=== PATIENT | male | born 1965 | race Asian ===

== ENCOUNTER 2020-05-09 08:00 | Outpatient (CLI) | payer OTHER ==
[2020-05-09 13:10] LABS: BASOPHILS % (AUTO) 0.2 %; EOSINOPHILS # (AUTO) 0.1 10^3/uL (0.0-0.7); EOSINOPHILS % (AUTO) 1.2 %; HGB - HEMOGLOBIN 14.5 g/dL (14.0-18.0); LYMPHOCYTES # (AUTO) 2.4 10^3/uL (1.5-3.5); LYMPHOCYTES % (AUTO) 40.3 %; MEAN CORPUSCULAR HEMOGLOBIN 29.8 pg (27.0-31.0); MEAN CORPUSCULAR VOLUME 90.5 fL (80.0-94.0); MEAN PLATELET VOLUME 8.7 fL (7.4-11.4); MONOCYTES # (AUTO) 0.4 10^3/uL (0.0-1.0); MONOCYTES % (AUTO) 6.1 %; NEUTROPHILS # (AUTO) 3.1 10^3/uL (1.5-6.6); PLT - PLATELET COUNT 250 10^3/uL (130-450); RED BLOOD COUNT 4.86 10^6/uL (4.70-6.10); RED CELL DISTRIBUTION WIDTH 12.9 % (12.0-15.0); WHITE BLOOD COUNT 5.9 x10^3/uL (4.8-10.8)
[2020-05-09 13:27] LABS: ALBUMIN 4.2 g/dL (3.2-5.5); ALBUMIN/GLOBULIN RATIO 1.2 (1.0-2.2); ALKALINE PHOSPHATASE 52 IU/L (42-121); ALT ALANINE AMINOTRANSFERASE 35 IU/L (10-60); AST ASPARTATE AMINOTRANSFERASE 27 IU/L (10-42); BILIRUBIN,TOTAL 1.2 mg/dL (0.2-1.0); BUN - BLOOD UREA NITROGEN 20 mg/dL (6-20); CALCIUM 8.9 mg/dL (8.5-10.3); CARBON DIOXIDE - CO2 26 mmol/L (21-32); CHLORIDE 104 mmol/L (101-111); CHOL/HDL RATIO 4.8 (<5.0); CHOLESTEROL 250 mg/dL; GLUCOSE 106 mg/dL (70-100); HDL CHOLESTEROL 52 mg/dL; LDL CHOLESTEROL,CALCULATED 160 mg/dL; LDL/HDL RATIO 3.1 (<3.6); SODIUM 138 mmol/L (135-145); TOTAL PROTEIN 7.8 g/dL (6.7-8.2); VLDL CHOLESTEROL 38 mg/dL
[2020-05-09 13:51] LABS: HEMOGLOBIN A1c% 5.5 % (4.27-6.07)
== END 2020-05-09 23:59 | disposition home or self-care (01) ==
LOC: LAB.WCP 08:00
PROVIDERS: ATTEND Physician Assistant
DX: Z00.00 Encounter for general adult medical examination without abnormal findings (principal)
CPT/HCPCS: 36415; 80053; 80061; 83036; 83721; 84153; 84443; 85025

== ENCOUNTER 2023-04-23 08:21 | Outpatient (CLI) | payer SELFPAY | END 2023-04-23 08:22 | disposition short-term general hospital (02) | LOC: EMS 08:21 | DX: R07.89 Other chest pain (principal); R94.31 Abnormal electrocardiogram [ECG] [EKG] | CPT/HCPCS: A0425; A0427 ==

== ENCOUNTER 2023-09-06 09:36 | Outpatient (CLI) | payer BC ==
[2023-09-06 18:55] LABS: EOSINOPHILS % (AUTO) 1.1 %; HCT - HEMATOCRIT 47.3 % (42.0-52.0); HGB - HEMOGLOBIN 14.8 g/dL (14.0-18.0); LYMPHOCYTES # (AUTO) 2.1 10^3/uL (1.5-3.5); LYMPHOCYTES % (AUTO) 54.4 %; MEAN CORPUSCULAR HEMOGLOBIN 27.4 pg (27.0-31.0); MEAN CORPUSCULAR HGB CONC 31.3 g/dL (32.0-36.0); MEAN CORPUSCULAR VOLUME 87.4 fL (80.0-94.0); MEAN PLATELET VOLUME 10.1 fL (7.4-11.4); MONOCYTES # (AUTO) 0.3 10^3/uL (0.0-1.0); MONOCYTES % (AUTO) 8.8 %; NEUTROPHILS # (AUTO) 1.3 10^3/uL (1.5-6.6); NEUTROPHILS % (AUTO) 35.4 %; PLT - PLATELET COUNT 134 10^3/uL (130-450); RED BLOOD COUNT 5.41 10^6/uL (4.70-6.10); RED CELL DISTRIBUTION WIDTH 13.6 % (12.0-15.0); WHITE BLOOD COUNT 3.8 x10^3/uL (4.8-10.8)
[2023-09-06 19:15] LABS: ALBUMIN 3.7 g/dL (3.2-5.5); ALKALINE PHOSPHATASE 117 IU/L (42-121); ALT ALANINE AMINOTRANSFERASE 43 IU/L (10-60); AST ASPARTATE AMINOTRANSFERASE 36 IU/L (10-42); BILIRUBIN,TOTAL 1.4 mg/dL (0.2-1.0); BUN - BLOOD UREA NITROGEN 17 mg/dL (6-20); CALCIUM 10.3 mg/dL (8.5-10.3); CARBON DIOXIDE - CO2 28 mmol/L (21-32); CHLORIDE 103 mmol/L (101-111); CHOL/HDL RATIO 2.8 (<5.0); CHOLESTEROL 135 mg/dL; CREATININE 0.7 mg/dL (0.6-1.3); GFR - MDRD 115 (>89); GLUCOSE 90 mg/dL (74-104); HDL CHOLESTEROL 48 mg/dL; LDL CHOLESTEROL,CALCULATED 72 mg/dL; LDL/HDL RATIO 1.5 (<3.6); SODIUM 138 mmol/L (135-145); TOTAL PROTEIN 7.5 g/dL (6.4-8.9); TRIGLYCERIDES 76 mg/dL (48-352); VLDL CHOLESTEROL 15 mg/dL
== END 2023-09-06 09:37 | disposition home or self-care (01) ==
LOC: LAB.N 09:36
PROVIDERS: ATTEND Nurse Practitioner
DX: I10 Essential (primary) hypertension (principal); E78.5 Hyperlipidemia, unspecified; R97.20 Elevated prostate specific antigen [PSA]
CPT/HCPCS: 36415; 80053; 80061; 83721; 84153; 85025

== ENCOUNTER 2024-02-16 07:30 | Outpatient (CLI) | payer BC ==
[2024-02-16 18:26] LABS: H. PYLORIS ANTIGEN STL NEGATIVE (Negative)
[2024-02-17 12:34] LABS: EOSINOPHILS % (AUTO) 0.6 %; HGB - HEMOGLOBIN 13.7 g/dL (14.0-18.0); LYMPHOCYTES # (AUTO) 1.5 10^3/uL (1.5-3.5); LYMPHOCYTES % (AUTO) 29.6 %; MEAN CORPUSCULAR HEMOGLOBIN 28.1 pg (27.0-31.0); MEAN CORPUSCULAR HGB CONC 31.9 g/dL (32.0-36.0); MEAN CORPUSCULAR VOLUME 88.3 fL (80.0-94.0); MEAN PLATELET VOLUME 9.6 fL (7.4-11.4); MONOCYTES # (AUTO) 0.4 10^3/uL (0.0-1.0); MONOCYTES % (AUTO) 8.6 %; NEUTROPHILS # (AUTO) 3.1 10^3/uL (1.5-6.6); PLT - PLATELET COUNT 152 10^3/uL (130-450); RED BLOOD COUNT 4.87 10^6/uL (4.70-6.10); RED CELL DISTRIBUTION WIDTH 12.2 % (12.0-15.0); WHITE BLOOD COUNT 5.1 x10^3/uL (4.8-10.8)
[2024-02-17 12:57] LABS: ESTIMATED AVERAGE GLUCOSE 117 mg/dL (70-100); HEMOGLOBIN A1c% 5.7 % (4.27-6.07)
[2024-02-17 12:59] LABS: ALKALINE PHOSPHATASE 141 IU/L (42-121); ALT ALANINE AMINOTRANSFERASE 41 IU/L (10-60); AST ASPARTATE AMINOTRANSFERASE 30 IU/L (10-42); BILIRUBIN,TOTAL 1.5 mg/dL (0.2-1.0); BUN - BLOOD UREA NITROGEN 19 mg/dL (6-20); CALCIUM 10.1 mg/dL (8.5-10.3); CARBON DIOXIDE - CO2 26 mmol/L (21-32); CHLORIDE 106 mmol/L (101-111); CHOL/HDL RATIO 2.2 (<5.0); CHOLESTEROL 121 mg/dL; CREATININE 0.7 mg/dL (0.6-1.3); GFR - MDRD 115 (>89); GLUCOSE 112 mg/dL (74-104); HDL CHOLESTEROL 54 mg/dL; LDL CHOLESTEROL,CALCULATED 51 mg/dL; LDL/HDL RATIO 0.9 (<3.6); POTASSIUM 4.1 mmol/L (3.5-4.5); SODIUM 137 mmol/L (135-145); TOTAL PROTEIN 7.9 g/dL (6.4-8.9); TRIGLYCERIDES 81 mg/dL; VLDL CHOLESTEROL 16 mg/dL
[2024-02-17 13:06] LABS: THYROID STIMULATING HORMONE < 0.01 uIU/mL (0.34-5.60)
== END 2024-02-16 07:31 | disposition home or self-care (01) ==
LOC: LAB.R 07:30
PROVIDERS: ATTEND Nurse Practitioner
DX: K21.9 Gastro-esophageal reflux disease without esophagitis (principal); I10 Essential (primary) hypertension; E78.5 Hyperlipidemia, unspecified; R73.03 Prediabetes; I48.92 Unspecified atrial flutter
CPT/HCPCS: 80053; 80061; 83036; 83721; 84439; 84443; 85025; 87338

== ENCOUNTER 2024-02-16 08:53 | Outpatient (CLI) | payer BC | END 2024-02-16 08:54 | disposition EMS.NT | LOC: EMS 08:53 | DX: R10.13 Epigastric pain (principal); R07.9 Chest pain, unspecified; I48.91 Unspecified atrial fibrillation ==

== ENCOUNTER 2024-04-19 23:59 | Outpatient (CLI) | payer BC | END 2024-04-20 | disposition critical access hospital (66) | LOC: EMS 23:59 | DX: R40.20 Unspecified coma (principal) | CPT/HCPCS: A0425; A0427 ==

== ENCOUNTER 2024-04-20 00:14 | Emergency (ER) | payer BC ==
[2024-04-20] MEDS ORDERED: LORazepam 2 MG/ML VIAL ONE (00:19)
--- NOTE | 2024-04-20 00:29 | ED Physician Documentation ---
PD HPI DYSPNEA - Stated complaint Stated Complaint: INTUBATED - History obtained from History obtained from: Family (son, with whom the patient has been staying since surgery, so has close contact information of the patient.), EMS (EMS noted the patient to have marked work of breathing with decreased respiratory rate and low oximetry in the 73% range on their arrival. He did not respond to facemask oxygen and was intubated in the field.) - History of Present Illness Timing - onset: How many days ago (The patient's son notes there has been progressive edema in both legs over the last several days along with some general fatigue and some dyspnea noted. This culminated this evening with kimber Worsening of breathing, altered mentation and less responsiveness.) Timing - onset during: Light activity Timing - details: Gradual onset (with marked worsening this evening.) Inciting event(s): No: URI (no URI symptoms per family) Associated symptoms: Bilateral edema. No: Fever, Cough Recently seen: Surgery (The patient had three-vessel bypass at [facility] 2 weeks ago according to the family. He was discharged on oxygen at I believe 4 L nasal cannula. On several medications including diuretic, beta-uli, apixaban as most pertinent. Family states he had been doing okay until past few days.) Review of Systems Unable to obtain: Intubated, Other (info from family) Constitutional: denies: Fever Cardiac: reports: Chest pain / pressure (musculoskeletal type from the surgery), Pedal edema Respiratory: reports: Dyspnea. denies: Cough GI: denies: Vomiting, Diarrhea PD PAST MEDICAL HISTORY - Past Medical History Cardiovascular: Coronary artery disease Respiratory: None Endocrine/Autoimmune: None GI: None : None HEENT: None Psych: None Musculoskeletal: None - Present Medications Home Medications: Ambulatory Orders Medication Instructions Recorded Confirmed No Known Home Medications 04/16/13 04/16/13 - Allergies Allergies/Adverse Reactions: Allergies Allergy/AdvReac Type Severity Reaction Status Date / Time iodine Allergy Severe Hives Verified 04/20/24 00:28 PD ED PE NORMAL - Vitals Vital signs reviewed: Yes - General General: Well developed/nourished, Other (intubated with some movements and seems distressed by the tube, improved with sedation.) - Neck Neck: Other (JVD present at 45 degrees. ) - Cardiac Cardiac: RRR, No murmur - Respiratory Respiratory: Other (intubated). No: Clear bilaterally (coarse/wet sounds bilaterally with diminished at bases right more than left. ) - Abdomen Abdomen: Soft, Non distended Results - Vitals Vitals: Vital Signs - 24 hr 04/20/24 04/20/24 04/20/24 00:28 00:40 00:41 Temperature 36.5 C Heart Rate 73 61 62 Respiratory 22 19 Rate Blood Pressure 124/56 L 104/41 L O2 Saturation 98 100 04/20/24 04/20/24 04/20/24 00:48 01:03 01:15 Temperature 37.4 C Heart Rate 56 L 45 L 76 Respiratory 20 22 18 Rate Blood Pressure 83/53 L 80/45 L 128/57 L O2 Saturation 100 100 100 04/20/24 04/20/24 04/20/24 01:30 01:34 01:45 Temperature 37.3 C 37.2 C Heart Rate 81 84 80 Respiratory 20 20 Rate Blood Pressure 136/55 H 124/53 L O2 Saturation 100 100 04/20/24 04/20/24 04/20/24 02:00 02:15 02:30 Temperature 37 C Heart Rate 80 76 81 Respiratory 20 20 20 Rate Blood Pressure 128/62 126/61 125/56 L O2 Saturation 100 100 100 04/20/24 04/20/24 04/20/24 02:45 03:00 03:15 Temperature 36.9 C 36.9 C 36.9 C Heart Rate 82 83 93 Respiratory 20 20 20 Rate Blood Pressure 121/58 L 121/57 L 121/57 L O2 Saturation 100 100 100 04/20/24 04/20/24 03:30 04:00 Temperature 37 C 36.9 C Heart Rate 88 82 Respiratory 24 20 Rate Blood Pressure 104/54 L 110/61 O2 Saturation 100 100 Oxygen O2 Source Mechanical ventilator - EKG (time done) 0024 EKG releavant findings:: EKG personally interpreted by author of this note. Relevant findings are: Rate: Rate (enter#) (61) Rhythm: NSR [place]: Normal Intervals: Normal VT QRS: Normal Ischemia: Normal ST segments. No: ST elevation c/w ischemia, ST depression - Labs Labs: Laboratory Tests 04/20/24 04/20/24 04/20/24 00:20 00:20 00:20 WBC 13.8 H RBC 2.71 L Hgb 7.7 L Hct 26.8 L MCV 98.9 H MCH 28.4 MCHC 28.7 L RDW 17.5 H Plt Count 533 H MPV 9.2 Neut # (Auto) 12.1 H Lymph # (Auto) 0.9 L [place] # (Auto) 0.8 Eos # (Auto) 0.0 Baso # (Auto) 0.0 Absolute Nucleated RBC 0.00 Nucleated RBC % 0.0 PT INR APTT Bld Gas Analysis Time Sample Site ABG pH ABG pCO2 ABG pO2 ABG HCO3 ABG Total CO2 ABG O2 Saturation ABG Base Excess Juan Test Respiration Rate O2 Delivery Device Vent Mode FiO2 Tidal Volume PEEP Sodium Potassium Chloride Carbon Dioxide Anion Gap BUN Creatinine Estimated GFR (MDRD) Glucose Calcium Magnesium 1.8 Total Bilirubin AST ALT Alkaline Phosphatase Troponin I High Sens 60.6 H* B-Natriuretic Peptide 224 H Total Protein Albumin Globulin Albumin/Globulin Ratio Lipase Nasal Adenovirus (PCR) Nasal B. parapertussis DNA (PCR) Nasal Coronavir 229E PCR Nasal Coronavir HKU1 PCR Nasal Coronavir NL63 PCR Nasal Coronavir OC43 PCR Nasal Enterovir/Rhinovir PCR Nasal Influenza B PCR Nasal Influenza A PCR Nasal Parainfluen 1 PCR Nasal Parainfluen 2 PCR Nasal Parainfluen 3 PCR Nasal Parainfluen 4 PCR Nasal RSV (PCR) Nasal B.pertussis DNA PCR Nasal C.pneumoniae (PCR) Leo Human Metapneumo PCR Nasal M.pneumoniae (PCR) Nasal SARS-CoV-2 (PCR) 04/20/24 04/20/24 04/20/24 00:20 00:20 00:37 WBC RBC Hgb Hct MCV MCH MCHC RDW Plt Count MPV Neut # (Auto) Lymph # (Auto) [place] # (Auto) Eos # (Auto) Baso # (Auto) Absolute Nucleated RBC Nucleated RBC % PT 21.0 H INR 2.0 H APTT 28.3 Bld Gas Analysis Time Sample Site ABG pH ABG pCO2 ABG pO2 ABG HCO3 ABG Total CO2 ABG O2 Saturation ABG Base Excess Juan Test Respiration Rate O2 Delivery Device Vent Mode FiO2 Tidal Volume PEEP Sodium 124 L Potassium 5.8 H Chloride 95 L Carbon Dioxide 20 L Anion Gap 9.0 BUN 40 H Creatinine 1.5 H Estimated GFR (MDRD) 48 L Glucose 140 H Calcium 8.3 L Magnesium Total Bilirubin 4.5 H AST 122 H ALT 165 H Alkaline Phosphatase 265 H Troponin I High Sens B-Natriuretic Peptide Total Protein 6.8 Albumin 2.7 L Globulin 4.1 Albumin/Globulin Ratio 0.7 L Lipase 107 H Nasal Adenovirus (PCR) NOT DETECTED Nasal B. parapertussis DNA (PCR) NOT DETECTED Nasal Coronavir 229E PCR NOT DETECTED Nasal Coronavir HKU1 PCR NOT DETECTED Nasal Coronavir NL63 PCR NOT DETECTED Nasal Coronavir OC43 PCR NOT DETECTED Nasal Enterovir/Rhinovir PCR NOT DETECTED Nasal Influenza B PCR NOT DETECTED Nasal Influenza A PCR NOT DETECTED Nasal Parainfluen 1 PCR NOT DETECTED Nasal Parainfluen 2 PCR NOT DETECTED Nasal Parainfluen 3 PCR NOT DETECTED Nasal Parainfluen 4 PCR NOT DETECTED Nasal RSV (PCR) NOT DETECTED Nasal B.pertussis DNA PCR NOT DETECTED Nasal C.pneumoniae (PCR) NOT DETECTED Leo Human Metapneumo PCR NOT DETECTED Nasal M.pneumoniae (PCR) NOT DETECTED Nasal SARS-CoV-2 (PCR) NOT DETECTED 04/20/24 01:15 WBC RBC Hgb Hct MCV MCH MCHC RDW Plt Count MPV Neut # (Auto) Lymph # (Auto) [place] # (Auto) Eos # (Auto) Baso # (Auto) Absolute Nucleated RBC Nucleated RBC % PT INR APTT Bld Gas Analysis Time 0121 Sample Site LEFT BRACHIAL ABG pH 7.20 L* ABG pCO2 56 H ABG pO2 49 L ABG HCO3 21.4 L ABG Total CO2 23.1 ABG O2 Saturation 76 L* ABG Base Excess -6.3 L Juan Test NOT APPLICABLE Respiration Rate 18 O2 Delivery Device VENTILATOR Vent Mode SIMV FiO2 70.00 Tidal Volume 450 PEEP 5 Sodium Potassium Chloride Carbon Dioxide Anion Gap BUN Creatinine Estimated GFR (MDRD) Glucose Calcium Magnesium Total Bilirubin AST ALT Alkaline Phosphatase Troponin I High Sens B-Natriuretic Peptide Total Protein Albumin Globulin Albumin/Globulin Ratio Lipase Nasal Adenovirus (PCR) Nasal B. parapertussis DNA (PCR) Nasal Coronavir 229E PCR Nasal Coronavir HKU1 PCR Nasal Coronavir NL63 PCR Nasal Coronavir OC43 PCR Nasal Enterovir/Rhinovir PCR Nasal Influenza B PCR Nasal Influenza A PCR Nasal Parainfluen 1 PCR Nasal Parainfluen 2 PCR Nasal Parainfluen 3 PCR Nasal Parainfluen 4 PCR Nasal RSV (PCR) Nasal B.pertussis DNA PCR Nasal C.pneumoniae (PCR) Leo Human Metapneumo PCR Nasal M.pneumoniae (PCR) Nasal SARS-CoV-2 (PCR) - Rads (name of study) chest xray Relevant Findings:: Prelim report reviewed, EMP independent interpretation of test (ETT in position. effusions both sides right more than left. General vas cular congestion c/w pulmonary edema. ) chest CT angio Relevant Findings:: Prelim report reviewed (no large central PEs. Small vessels with some motion artifact. Effusions bilaterally. edema present. ), EMP independent interpretation of test PD Medical Decision Making - ED course Complexity details: reviewed results (The patient's chest x-ray showed notable effusions on both sides more on the right. Vascular edema consistent with CHF. No pneumothorax. I did do a limited bedside ultrasound and showed the IVC to be dilated but had some compressibility. heart without significant effusion nor tamponade.), considered differential (Recent three-vessel bypass just in the last 2 weeks with several days of increasing edema and some dyspnea now culminating with significant respiratory distress and failure this evening with significant hypoxia and altered mentation.), d/w family, d/w behavioral health consultant (Dr. Grover, ways operator at [facility], who concurs with current treatment and accepts transfer of patient.) ED course: The patient arrives intubated due to respiratory distress, altered mentation, significant hypoxia to 73% as noted by EMS in the field. He was intubated by them. He arrives still sedate from the RSI. He does start to rouse some soon after arrival. He appears anxious which is reasonable. He is given Versed initially to help with sedation and propofol drip will be started. Family is present to help give information. He has been staying with them so they have close contact. They state he has been taking his medication. He had been currently recovering okay. He had had sternal chest pain consistent with the musculoskeletal but did not describe any pressure type feelings to them. They had noticed he had increasing edema in both legs progressively over the last 3 to 4 days. Some general weakness and dyspnea. However this culminated significantly with marked increase in dyspnea this evening and then altered mentation. The patient does have clinical strong suggestion of CHF with now pulmonary edema given JVD, wet lung sounds, the history, and 2+ edema in both legs up to and above the knees. Bedside ultrasound done promptly did not show any pericardial effusion nor signs of tamponade. Effusion noted on both sides. No free fluid in the abdomen. The IVC showed dilation but some compressibility. Presumption of post operative CHF with now pulmonary edema, the main targeted goals were for blood pressure adequacy and diuresis. EMS states their initial blood pressure was in the normal range approximately 130 systolic. And a heart rate approximately 100-1 10. It was a sinus rhythm. Here his blood pressure is mildly hypotensive at 88-100 systolic. Presumption could be from the RSI medications as well as the intubation with decreased preload. However the patient was still needing sedation. I did not want to give much fluid given the scenario of likely CHF and volume overload. He was given a very slight amount of IV fluid en route by EMS. Main focus was for then pressor support. Norepinephrine was started and titrated for blood pressure above 100. Main goal was MAP above 65. Blood pressure did improve with this and he is normotensive over several readings. We then did give Lasix 80 mg IV. NG and Shafer were placed. Soon after arrival the patient had had a chest x-ray as well that confirmed good to position and had already been verified by symmetric lung sounds bilaterally. Basic blood test initially where showing a only minimally elevated BNP in the 200s. Troponin was 60 which is mildly elevated and could be just demand ischemia. The chest x-ray showed good position for the endotracheal tube, pulmonary edema and bilateral effusions. EKG showed normal sinus rhythm without any ectopy. No ST elevations. Review of the blood count and electrolytes and chemistry showed some anemia, elevated creatinine of 1.7 with our previous from September being 1.0. LFTs were elevated with a bilirubin of 3 and general elevation of the other LFTs in the 200 range. Lipase mildly elevated around 200. Potassium was adequate at 5.4. The patient was maintained on a ventilator with initial settings per protocol by respiratory. Initial blood gas showed a pH 7.2 and a pCO2 of 53 and a low pCO2 of 49. We increased his PEEP from 5-8 and his tidal volume as well. This did provide improvement in his end-tidal CO2 on the monitor which had correlated with the blood gas. End-tidal CO2 decreased to 40. O2 sats by oximeter tree are remaining 96-100. Respiratory was able to titrate down his FiO2 to 60%. NG and Shafer had been placed by nursing staff. The Shafer output was dark and small initially but picked up quite briskly after the Lasix and he is put out approximately 800 to 900 mL of clear urine at this time. Given his recent bypass surgery at [facility] with now congestive failure, it seems prudent to reach out to them. We did call the [facility] transfer center and they were able to maneuver bed availability to have an ICU bed. I talked with the ways operator there who is in agreement with her current treatment and accepted transfer. On the patient was transferred over and improving condition. CT of the chest was able to be done and there were no signs of central pulmonary emboli. Note was made of the CHF and effusions. Care was given over to [facility]. Currently he is on propofol for sedation, norepinephrine for pressure support at a rate of 10. Current vitals are stable with normal tensive blood pressure and heart rate under 100, end-tidal CO2 of 40 and oximetry of 100% on current settings. - Critical Care Time(min): 85 Time Includes: Direct patient care, Reassess patient, Document care, Coordinate care, Medical consult, Family consult for [facility] Data interpretation: Labs, Pulse ox, ABG, CXR Procedures excluded from critical care time: EKG Departure - Departure Disposition: 02 Transfer Acute Care Hosp Clinical Impression: Acute respiratory failure, Status post aorto-coronary artery bypass graft, Pulmonary edema, Pleural effusion Condition: Serious Forms: PCP List Discharge Date/Time: 04/20/24 04:21
[2024-04-20 00:43] VITALS: O2SAT 100
[2024-04-20] MEDS: PROPOFOL 1000 MG/100 ML 1,000 MG/100 ML BOTTLE IV SCH (00:45)
--- NOTE | 2024-04-20 00:50 | XRAY Report ---
PROCEDURE: Chest 1V INDICATIONS: dyspnea TECHNIQUE: One view of the chest was acquired. COMPARISON: None. FINDINGS: Surgical changes and devices: Endotracheal tube in the mid trachea. Post median sternotomy.. Lungs and pleura: Small to moderate bilateral pleural effusions. Hazy airspace opacity. No pneumotho rax. Mediastinum: Mediastinal contours appear normal. Heart size is within normal limits. Bones and chest wall: No suspicious bony lesions. Overlying soft tissues appear unremarkable. IMPRESSION: Small to moderate bilateral pleural effusions. Suspect fluid overload/CHF. Endotracheal tube in the mid trachea. Reviewed by: Adrian Flores MD on 04/20/2024 12:48 AM PDT Approved by: Adrian Flores MD on 04/20/2024 12:48 AM PDT Station ID: [id number]
[2024-04-20] MEDS: HYDROmorphone 1 MG/ML CARPUJECT IVP STA (00:52)
[2024-04-20] MEDS: FUROSEMIDE 40 MG/4 ML VIAL IVP STA (00:52)
[2024-04-20] MEDS ORDERED: DEXMEDETOMIDINE 400 MCG/100 ML 100 ML IV PRN (00:52)
[2024-04-20] MEDS: LORazepam 2 MG/ML VIAL IVP STA (00:52)
[2024-04-20 00:55] LABS: MAGNESIUM 1.8 mg/dL (1.7-2.3)
[2024-04-20] MEDS ORDERED: MIDAZOLAM 2 MG/2 ML VIAL ONE (00:56)
[2024-04-20] MEDS: NOREPINEPHRINE/0.9 % NS 8 MG/250 ML BAG IV SCH (01:01)
[2024-04-20] MEDS: SODIUM CHLORIDE 0.9% 1,000 ML IV STA (01:03)
[2024-04-20 01:08] LABS: TROPONIN I HIGH SENSITIVITY 60.6 ng/L (2.3-19.7)
[2024-04-20] MEDS: MIDAZOLAM 10 MG/2 ML VIAL IVP STA (01:12)
[2024-04-20 01:21] LABS: ABG BASE EXCESS -6.3 mmol/L (-2.0-3.0); ABG HCO3 21.4 mmol/L (22.0-26.0); ABG PCO2 56 mmHg (34-45); ABG PO2 49 mmHg (80-100); ABG TCO2 23.1 MMOL/L (21.0-29.0)
[2024-04-20 01:22] LABS: ABG OXYGEN SATURATION 76 % (94-98)
[2024-04-20 01:23] LABS: ABG MODE OF VENTILATION SIMV; ABG RESPIRATORY RATE 18 b/min
[2024-04-20] MEDS ORDERED: iohexoL-300 100 ML VIAL ONE (01:27)
[2024-04-20 01:35] LABS: BASOPHILS % (AUTO) 0.1 %; HCT - HEMATOCRIT 26.8 % (42.0-52.0); HGB - HEMOGLOBIN 7.7 g/dL (14.0-18.0); LYMPHOCYTES # (AUTO) 0.9 10^3/uL (1.5-3.5); LYMPHOCYTES % (AUTO) 6.3 %; MEAN CORPUSCULAR HEMOGLOBIN 28.4 pg (27.0-31.0); MEAN CORPUSCULAR HGB CONC 28.7 g/dL (32.0-36.0); MEAN CORPUSCULAR VOLUME 98.9 fL (80.0-94.0); MEAN PLATELET VOLUME 9.2 fL (7.4-11.4); MONOCYTES # (AUTO) 0.8 10^3/uL (0.0-1.0); MONOCYTES % (AUTO) 5.5 %; NEUTROPHILS # (AUTO) 12.1 10^3/uL (1.5-6.6); NEUTROPHILS % (AUTO) 87.6 %; PLT - PLATELET COUNT 533 10^3/uL (130-450); RED BLOOD COUNT 2.71 10^6/uL (4.70-6.10); RED CELL DISTRIBUTION WIDTH 17.5 % (12.0-15.0); WHITE BLOOD COUNT 13.8 x10^3/uL (4.8-10.8)
[2024-04-20 01:48] LABS: PARTIAL THROMBOPLASTIN TIME 28.3 secs (24.9-33.3)
[2024-04-20 01:52] LABS: ALBUMIN 2.7 g/dL (3.2-5.5); ALBUMIN/GLOBULIN RATIO 0.7 (1.0-2.2); BILIRUBIN,TOTAL 4.5 mg/dL (0.2-1.0); CALCIUM 8.3 mg/dL (8.5-10.3); CREATININE 1.5 mg/dL (0.6-1.3); POTASSIUM 5.8 mmol/L (3.5-4.5); TOTAL PROTEIN 6.8 g/dL (6.4-8.9)
[2024-04-20] MEDS: iohexoL-300 100 ML VIAL IVP ONE (02:56)
[2024-04-20 03:50] LABS: B. PARAPERTUSSIS- RESP PCR PAN NOT DETECTED; B. PERTUSSIS- RESP PCR PANEL NOT DETECTED; C. PNEUMONIAE- RESP PCR PANEL NOT DETECTED; CORONAVIRUS 229E-RESP PCR NOT DETECTED; CORONAVIRUS HKU1-RESP PCR NOT DETECTED; CORONAVIRUS NL63-RESP PCR NOT DETECTED; CORONAVIRUS OC43-RESP PCR NOT DETECTED; HUMAN METAPNEUMOVIRUS NOT DETECTED; INFLUENZA A- RESP PCR PANEL NOT DETECTED; INFLUENZA B - RESP PCR PANEL NOT DETECTED; M. PNEUMONIAE- RESP PCR PANEL NOT DETECTED; PARAINFLUENZA VIRUS 1 NOT DETECTED; PARAINFLUENZA VIRUS 2 NOT DETECTED; PARAINFLUENZA VIRUS 3 NOT DETECTED; PARAINFLUENZA VIRUS 4 NOT DETECTED; RHINOVIRUS/ENTEROVIRUS NOT DETECTED; RSV- RESP PCR PANEL NOT DETECTED; SARS-CoV-2 -RESP PCR PANEL NOT DETECTED
[2024-04-20 04:29] VITALS: BP 110/61
--- NOTE | 2024-04-20 08:13 | CT Report ---
PROCEDURE: Angio Chest INDICATIONS: acute dyspnea CONTRAST: Omni 300, 80mls TECHNIQUE: After the administration of intravenous contrast, 2 mm axial images were acquired from the pulmonary apices to the posterior costophrenic angles during the arterial phase. In addition, 1 mm lung kernel and 5 mm soft tissue kernel reconstructions were performed. 3-dimensional coronal oblique maximum int ensity projection (MIP) reformats, 8 mm axial MIP, and 5 mm coronal and sagittal MPR reformats were t hen performed through the thorax. For radiation dose reduction, the following was used: automated exp osure control, adjustment of mA and/or kV according to patient size. COMPARISON: Same-day radiograph FINDINGS: Image quality: Diagnostic Lungs and pleura:Moderate bilateral effusions. Bibasilar opacities are present. Scattered other areas of peripheral groundglass opacities are seen in the upper lobes. ET tube terminates in the upper trachea. Mediastinum, heart, and esophagus: Enteric tube terminates below the diaphragm. Coronary calcificatio ns. Left atrial appendage device. No acute central pulmonary embolism. The distal arteries are not we ll evaluated. No pathologic lymph nodes by size criteria. Chest wall and thyroid: Diffuse anasarca. Thyroid is unremarkable Upper abdomen: No gross abnormality, though not well assessed on this arterial phase study Bones: Degenerative changes. IMPRESSION: Moderate bilateral effusions. Bibasilar opacities and upper lung opacities also seen, probably additi onal foci of infection and edema. Consider future imaging surveillance to assess for resolution. Cardiomegaly. Postsurgical cardiac changes. No central pulmonary embolism. The distal arteries are not well assessed. Agree with preliminary report. Reviewed by: Kendrick Lock MD on 04/20/2024 8:12 AM PDT Approved by: Kendrick Lock MD on 04/20/2024 8:12 AM PDT Station ID: [id number]
== END 2024-04-20 04:21 | disposition short-term general hospital (02) ==
LOC: ED 00:14
DX: J96.01 Acute respiratory failure with hypoxia (principal); I50.1 Left ventricular failure, unspecified; I95.9 Hypotension, unspecified; J90 Pleural effusion, not elsewhere classified; F41.9 Anxiety disorder, unspecified; Z95.1 Presence of aortocoronary bypass graft
CPT/HCPCS: 36415; 51702; 71045; 71275; 80053; 82803; 83690; 83735; 83880; 84484; 85025; 85610; 85730; 87633; 93005; 94002; 96365; 96366; 96375; 99291; 99292; J1170; J2060; Q9967